=== PATIENT | female | born 1975 | race Caucasian/White ===

== ENCOUNTER → 2016-05-25 | Outpatient (CLI) | payer OTHER ==
[~2016-05-25] MED LIST: ACYCLOVIR 400400 MG PO; ALPRAZOLAM 0.50.5 M1 PO; B-12; BYSTOLIC 5 MG5 M1 PO; BYSTOLIC 5 MG5 MG PO; CELEXA20 MG PO; CLONAZEPAM 1 MG1 M1 PO; CLONIDINE0.1 PO; DEPO-PROVER150 MG/M1 IM; DEPO-PROVERA; DIAZEPAM 5 MG5 M1 OR; DOLOPHINE HCL10 MG PO; IBUPROFEN; IBUPROFEN 800800 M1 PO; KLOR-CON 1010 MEQ PO; LASIX 20 MG TAB20 MG PO; LASIX 40 MG TAB40 M1 PO; LEXAPRO20 MG PO; METHADONE HCL 110 M1 GT; METHOCARBAMOL; METHOCARBAMOL500 M1 PO; ONDANSETRON HCL4 M2 PO; POTASSIUM20 PO; SAVELLA; SAVELLA100 MG PO; SAVELLA50 MG PO; ULTRAM 50MG TAB50 MG PO; VALTREX 500 MG500 MG PO
== END ==
LOC: RAD 04:47
DX: N64.52 Nipple discharge (principal)

== ENCOUNTER 2016-09-11 12:18 | Observation (INO) | payer OTHER ==
[~2016-09-11] VITALS: Ht 170.2 cm; Wt 65.3 kg
--- NOTE | ~2016-09-11 | EKG ---
[place] [address] [facility] [place] [address] ELECTROCARDIOGRAM REPORT Name: CASEERICKA Room #: 417-I [facility] M.R.#: [id number] Admission: 09/11/16 Attend Phys: Stef See MD Discharge: Date of : 71 Report #: [id number] THIS REPORT FOR: //name// [facility] Test Date: 2016-09-12 Test Time: 06:44:57 Pat Name: ERICKA KAYE Department: Room: [facility] Gender: F Derrick Boat Operator: CHELSEY : 1975 Requested By: Stef See Order Number: [id number] MD: Blaze Aldridge Measurements Intervals [place] Rate: 55 P: 80 AR: 153 QRS: 57 QRSD: 82 T: 54 QT: 425 QTc: 407 Interpretive Statements Sinus bradycardia Low voltage, precordial leads Compared to ECG 09/15/2015 16:24:[address] and T-wave abnormality no longer present Electronically Signed On 09-12-2016 18:27:14 CDT by Blaze Aldridge [email or web address] <ELECTRONICALLY SIGNED> By: Blaze Aldridge MD, [facility] 09/12/16 1827 3 Blaze Aldridge MD, [facility] /EPI
[2016-09-11 13:00] VITALS: BP 102/62
[2016-09-11 15:44] VITALS: BP 95/53
[2016-09-11 20:10] VITALS: BP 94/60
[2016-09-11] MEDS ORDERED: B-12 (23:06)
[2016-09-11] MEDS ORDERED: ROBAXIN 750 MG750 M1 PO (23:09)
[2016-09-11 23:45] VITALS: BP 90/59
[2016-09-12 05:05] VITALS: BP 101/66
[2016-09-12 05:56] VITALS: BP 102/69
[2016-09-12 09:28] LABS: ABG SAMPLE TYPE ARTERIAL; BE(vivo) -5.9 mmol/L (-2 to +3); HCO3 18.6 mmol/L (22.0-26.0); LACTATE 3.12 mmol/L (0.5-2.0); O2(CT) 12.8 mL/dL (15.0-23.0); O2Hb 95.6 % (92.0-98.0); PCO2 32.8 mmHg (35.0-45.0); PO2 94.1 mmHg (80.0-100.0); STICK SITE R.BRACHIAL; pH 7.371 (7.360-7.450); sO2 97.1 % (92.0-98.0); tCO2 19.6 mmol/L (24.0-30.0)
[2016-09-12 09:39] VITALS: BP 88/56
[2016-09-12 09:58] LABS: MCH 22.6 pg (26.0-34.0); MCHC 30.9 g/dL (28.0-37.0); MCV 73.1 fL (80.0-100.0); RBC 3.56 mil/uL (4.20-5.00); RDW 18.6 % (10.5-14.5); WBC 3.5 thou/uL (4.0-11.0)
[2016-09-12 14:07] VITALS: BP 88/56
== END 2016-09-12 19:16 | disposition home or self-care (01) ==
LOC: 4E 12:18
PROVIDERS: Family Medicine
DX: M79.1 Myalgia (principal); R10.9 Unspecified abdominal pain; E87.6 Hypokalemia; R11.2 Nausea with vomiting, unspecified; F41.9 Anxiety disorder, unspecified; F32.9 Major depressive disorder, single episode, unspecified; G89.29 Other chronic pain; K85.90 Acute pancreatitis without necrosis or infection, unspecified; M79.7 Fibromyalgia; R51 Headache

== ENCOUNTER → 2016-10-01 | Outpatient (CLI) | payer OTHER ==
[~2016-10-01] MED LIST changes: +ROBAXIN 750 MG750 M1 PO
== END ==
LOC: RAD 16:37
DX: R06.02 Shortness of breath (principal); R06.00 Dyspnea, unspecified

== ENCOUNTER 2016-10-02 17:40 | Inpatient (IN) | payer OTHER ==
[~2016-10-02] VITALS: Ht 170.2 cm; Wt 66.7 kg
--- NOTE | ~2016-10-02 | P ---
[facility] [place] [address] PROCEDURE REPORT Name: CASEERICKA Room #: 441-P [facility] IN M.R.#: [id number] Admission: 10/02/16 Attend Phys: Stef See MD Discharge: 10/09/16 Date of : 71 Report #: [id number] THIS REPORT FOR: //name// CC: Stef See MD DATE OF SERVICE: 10/05/2016 PROCEDURE PERFORMED: Incomplete colonoscopy. HISTORY OF PRESENT ILLNESS: The patient is a 41-year-old female with iron deficiency anemia and abdominal pain. Upper endoscopy was performed by my partner, Dr. Patel yesterday, which showed changes consistent with gastric bypass surgery. No evidence of bleeding. Plan is for colonoscopy. DESCRIPTION OF PROCEDURE: The risks and benefits of the procedure were explained to the patient, those risks including but not limited to bleeding, perforation, the risk of sedation. She understood these risks and gave informed consent. Sedation was given using propofol per anesthesia. Next, a digital rectal exam was initially performed, which was normal. Next, using a standard Fujinon colonoscope, the scope was placed in the patient's anus and advanced under direct vision into the sigmoid colon, at which point it was obvious the overall prep was very poor. I did try several washings and aspirations, however, there was a large amount of stool. Therefore, at this point, the scope was then withdrawn and the procedure terminated. The patient tolerated the procedure well. IMPRESSION: Poor prep. RECOMMENDATIONS: Would recommend re-prepping in the future for colonoscopy. Thank you for allowing me to participate in her care. <ELECTRONICALLY SIGNED> By: Power Combs MD 10/10/16 1226 1605 2216 Power Combs MD /nt
--- NOTE | ~2016-10-02 | S ---
[facility] [place] [address] [place] [address] SURGICAL PATH RPT PROCEDURE Name: CASE,ERICKA ROSE Room #: 441-P DIS IN M.R.#: [id number] Admission: 10/02/16 Date of : 71 Discharge: 10/09/16 Report #: [id number] Path Case #: [id number] PATHOLOGY REPORT COLLECTION DATE: 10/08/2016 RECEIVED DATE: 10/08/2016 SUBMITTING PHYS: Dr. Stevan Garcia OTHER PHYS: Dr. Stef See SPECIMEN(S) RECEIVED: A.Random colon bx * * * * * * * * * * * * FINAL DIAGNOSIS: Large intestine, random colon, endoscopic biopsy: - Mild focal active cryptitis (please see comment). - Negative for dysplasia or malignancy. (IUV:tricia; 10/09/2016) COMMENT: Examination shows a rare focus of cryptitis along with focal surface epithelial inflammation. The lamina propria cellularity is mixed, comprised of lymphocytes; rare plasma cells, as well as eosinophils, and appears to be mildly increased. There are no crypt architectural abnormalities, granulomata, viral inclusions, or parasitic organisms. Findings to suggest microscopic colitis are not present. Overall, findings may be suggestive of a resolving episode of colitis, focal active colitis, acute diverticulitis, possible early inflammatory bowel disease, reaction to bowel preparation, or medication-induced colitis. Please correlate clinically. (IUV:tricia; 10/09/2016) PATHOLOGIST: Solange Young M.D. REPORT ELECTRONICALLY SIGNED BY: Solange Young M.D. DATE/TIME: 10/09/2016 15:59 * * * * * * * * * * * * GROSS PATHOLOGY: Received in formalin labeled "Ericka Malave, random colon BX," are three segments of cunningham soft tissue measuring 1.1 x 0.3 x 0.2 cm in aggregate dimensions and ranging from 0.3 to 0.4 cm in maximum dimension. The specimen is submitted entirely in cassette A1. (TSD; 10/08/2016) CLINICAL HISTORY: [address] [address] SURGICAL PATH RPT PROCEDURE Name: CASE,ERICKA ROSE Room #: 441-P DIS IN M.R.#: [id number] Admission: 10/02/16 Date of : 71 Discharge: 10/09/16 Report #: [id number] Path Case #: [id number] Abdominal pain INITIAL CPT CODE(S): A; 86462 Professional services performed by [facility] at [address], [place] [address] Technical services performed by [facility] at [address] [place] [address], [place] [address]. [facility] [address] [place] [address] PHONE: [phone] DIRECTOR: Riki Dukes M.D. * * * END OF REPORT * * *
--- NOTE | ~2016-10-02 | 2DMMODE ---
[facility] [address] [place] [address] 2 D/M-MODE ECHOCARDIOGRAM Name: CASE,ERICKA ROSE Room #: 441-P ADM IN M.R.#: [id number] Admission: 10/02/16 Attend Phys: Stef See, Discharge: Date of : 71 Date of Service: 10/04/16 1015 Report #: [id number] THIS REPORT FOR: //name// APPROVED REPORT Study performed: 10/04/2016 08:31:00 EXAM: Comprehensive 2D, Doppler, and color-flow Echocardiogram Patient Location: Echo lab Room #: [facility] Status: routine BSA: 1.77 HR: 58 bpm BP: 82/47 mmHg Other Information Study Quality: Good Indications Dyspnea Chest Pain 2D Dimensions RVDd: 27.49 mm IVC: 26.00 mm Volumes Left Atrial Volume (Systole) Single Plane 4CH: 31.02 mL Single Plane 2CH: 65.72 mL LA ESV Index: 28.00 mL/m2 Aortic Valve AoV Peak Ezequiel.: 1.08 m/s AO Peak Gr.: 4.64 mmHg LVOT Max P.43 mmHg LVOT Max V: 0.78 m/s Mitral Valve E/A Ratio: 1.2 MV Decel. Time: 493.78 ms MV E Max Ezequiel.: 0.48 m/s MV A Ezequiel.: 0.40 m/s MV PHT: 143.20 ms IVRT: 96.89 ms Pulmonary Valve [facility] [address] [place] [address] 2 D/M-MODE ECHOCARDIOGRAM Name: CASE,ERICKA ROES Room #: 441-P [facility] IN M.R.#: [id number] Admission: 10/02/16 Attend Phys: Stef See, Discharge: Date of : 71 Date of Service: 10/04/16 1015 Report #: [id number] PV Peak Ezequiel.: 0.71 m/s PV Peak Gr.: 1.99 mmHg Pulmonary Vein P Vein S: 0.49 m/s P Vein A: 0.29 m/s P Vein D: 0.36 m/s P Vein A Dur.: 115.3 msec P Vein S/D Ratio: 1.36 Tricuspid Valve TR Peak Ezequiel.: 2.23 m/s RAP Estimate: 10.00 mmHg TR Peak Gr.: 19.90 mmHg PA Pressure: 30.00 mmHg Left Ventricle The left ventricle is normal size. There is normal LV segmental wall motion. There is normal left ventricular wall thickness. The left ventricular systolic function is normal. The left ventricular ejection fraction is within the normal range. LVEF is 55-60%. The left ventricular diastolic function is normal. Right Ventricle The right ventricle is normal size. The right ventricular systolic function is normal. Atria The left atrium size is normal. The right atrium size is normal. Aortic Valve The aortic valve is normal in structure. No aortic regurgitation is present. There is no aortic valvular stenosis. Mitral Valve The mitral valve is normal in structure. Trace mitral regurgitation. No evidence of mitral valve stenosis. Tricuspid Valve The tricuspid valve is normal in structure. There is trace tricuspid regurgitation. The right atrial pressure is estimated at 10 mmHg. There is no pulmonary hypertension. Pulmonic Valve The pulmonary valve is normal in structure. There is no pulmonic valvular regurgitation. Great Vessels The aortic root is normal in size. IVC is dilated and collapses [facility] [address] [place] [address] 2 D/M-MODE ECHOCARDIOGRAM Name: CASE,ERICKA ROSE Room #: 441-P ADM IN M.R.#: [id number] Admission: 10/02/16 Attend Phys: Stef See, Discharge: Date of : 71 Date of Service: 10/04/16 1015 Report #: [id number] >50% with inspiration. Pericardium There is no pericardial effusion. <Conclusion> The left ventricle is normal size. LVEF is 55-60%. The aortic valve is normal in structure. The mitral valve is normal in structure. Trace mitral regurgitation. The tricuspid valve is normal in structure. There is trace tricuspid regurgitation. The right atrial pressure is estimated at 10 mmHg. There is no pulmonary hypertension. The pulmonary valve is normal in structure. <ELECTRONICALLY SIGNED> By: Anastacio Hodges MD 10/04/16 1015 1015 1015 Anastacio Hodges MD /INF
--- NOTE | ~2016-10-02 | HC ---
[facility] [place] [address] [place] [address] CONSULTATION Name: CASEERICKA Room #: 441-P ADM IN M.R.#: [id number] Admission: 10/02/16 Attend Phys: Stef See MD Discharge: Date of : 71 Report #: [id number] THIS REPORT FOR: //name// CC: Dk See MD DATE OF SERVICE: 10/04/2016 REASON FOR CONSULTATION: Anemia. HISTORY OF PRESENT ILLNESS: The patient is a 41-year-old female from [place], [place] who currently lives in [place]. She has a history of a Misbah-en-Y gastric bypass at [facility] in 2000. She was admitted with a history of fatigue and anemia and possible GI bleeding. She also had some nausea and vomiting and shortness of air. She also describes nipple discharge. The patient, with regards to anemia, says that she has been told she has been anemic for a while. She has not had a transfusion, although it sounds like it has been discussed. She had been on oral iron in the distant past. She did recently receive a dose of IV iron begun on the with plans for iron sucrose 200 mg daily for 5 ____. She describes what sounds like to me there is some very dark stool consistent with what she thinks is bleeding, maybe a little bit of red tinge, she has not thrown up any blood. I do not think she has seen any blood in her urine. She also describes being short of air. She describes having a pulmonary emboli at [facility] last January, but it is unclear whether she actually took anticoagulation or not. She admits to be quite fuzzy this morning. She also thinks that she has had some nipple discharge for about 5 months. She has had an ultrasound and mammogram recently and was scheduled to Dr. Kingsley Bales, which has not occurred yet. Seems like she eats a fairly regular diet. PAST MEDICAL HISTORY: Notable for the Misbah-en-Y gastric bypass at [facility] in 2000. Lap cholecystectomy in 2003. She has also had some upper and lower body lifts reportedly in [place] in 2004. Also may be Lyme disease or chronic pain syndrome, also reported bipolar, anxiety disorder or post traumatic stress syndrome, possibly related to a situation in 2013, bilateral breast implants. Note there was no leakage seen on recent mammogram and sonogram, also pancreatitis in 2014. SOCIAL HISTORY: She had worked in [employer]. She is on partial disability related to Lyme disease. She has not worked for about 2 years. FAMILY HISTORY: Both mother and father were alcoholics and have dementia, has a [facility] [address] [place] [address] CONSULTATION Name: CASE,ERICKA ROSE Room #: 441-P ADM IN M.R.#: [id number] Admission: 10/02/16 Attend Phys: Stef See MD Discharge: Date of : 71 Report #: [id number] sister with breast cancer, has a son who is healthy. She was at her uncle's house, if I understand correctly, in [place], nonsmoker, supposedly no recreational drug usage. Alcohol: None. MEDICATIONS: At this time in the hospital currently include pantoprazole 40 daily, diphenhydramine q.6 p.r.n., IV fluids, potassium chloride 10 mEq daily, citalopram 30 mg daily, methadone 10 mg q.i.d., acyclovir 400 q.i.d., ibuprofen ____ t.i.d., clonazepam 0.5 mg t.i.d., methocarbamol 750 mg q.i.d. p.r.n., IV iron sucrose. PHYSICAL EXAMINATION: GENERAL: The patient appears her stated age, slightly groggy. VITAL SIGNS: Height is 5 feet 7 inches, which is 170 cm, weight 147 pounds 4 ounces, which is 66.8 kilograms. Blood pressure is 82/47, this is not too atypical for her, O2 sat 94%, respirations 18, pulse 63, temperature afebrile at 98.3. MOOD: The patient is alert, slightly sleepy, but is able to answer questions, though she sort of admits to being foggy and had to correct herself several times on answering questions. NEUROLOGIC: Face appears to be symmetrical. She is moving her extremities. LUNGS: Clear, symmetric respirations without rales, rhonchi or wheezes. HEART: Appears to be regular rate. LYMPHATICS: No enlarged lymph nodes in the supraclavicular or cervical regions. BREASTS: Have implants present, no obvious masses, does have some fibroglandular changes in both breast tails, no nipple discharge or crusting noted. ABDOMEN: Scaphoid, no masses, mild discomfort, but I would not call it tender. EXTREMITIES: Without clubbing or cyanosis. No obvious unusual rash, ecchymosis noted. LABORATORY DATA: Here shows a BUN of 6, creatinine 0.9. Liver functions in earlier September were normal. Total bili recently 0.2, ALT 17, albumin 3.7, LDH 197, iron was 17, TIBC 435%, saturation 4. Coags normal with an INR of 1.1, APTT of 22.5. White blood count 5.2, hemoglobin 8.1, MCV of 72. Note that back in 09/2015 it was 86 and back in 06/2009 it was 91. Platelet count is 122. Note that in the past, it is usually in the mid 200 range. Differential nonacute with an ANC of 3.2 thousand, B12 recently 328, TSH a year ago was 0.091. Note that recent HIV screening tests were negative. Entamoeba histolytica was negative. UA showed 0-2 rare rbc's. IMAGING: Done recently at this hospital includes ultrasound of the abdomen, which is no acute intraabdominal process, gallbladder has been removed, common bile duct normal size and spleen 11.1 cm, kidneys normal size, liver without evidence of cirrhosis or intrahepatic biliary ductal dilatation measuring 13.[address] abdomen and pelvis done about a year ago showed no acute changes, did have mild bile duct dilatation at that time. [address] [address] CONSULTATION Name: ERICKA KAYE Room #: 441-P ADM IN M.R.#: [id number] Admission: 10/02/16 Attend Phys: Stef See MD Discharge: Date of : 71 Report #: [id number] ASSESSMENT AND PLAN: 1. Anemia, iron deficiency related, agree with iron replacement. The patient probably cannot absorb iron very well after Misbah-en-Y, though it is mentioned that her MCV has decreased just in the last several years, even though her Misbah-en-Y was 16 years ago. Agree with GI looking for GI blood loss source, especially with use of Motrin several times per week, would consider making it non-available here. 2. Complaint of nipple discharge. No masses. Recent mammogram and ultrasound normal, reportedly prolactin normal. No reported history of marijuana or Tagamet that might increase this or hormonal changes that might cause nipple discharge, exam is benign. 3. B12 replacement. Continue 4. Reported history of pulmonary embolism last January at [facility] without anticoagulation use, records pending, sounds like she had seen hematology over there, could consider prophylactic dose here once we know that she is not bleeding or prophylactic dose of Lovenox once we know she is not bleeding from her GI sources. 5. Post traumatic stress syndrome and mood disorder. Continue citalopram. 6. Chronic pain, methadone 10 q.i.d. We will follow along. 7. Past history of chronic Lyme or fibromyalgia. Defer to others. 8. History of pancreatitis in 2014. Defer to others. <ELECTRONICALLY SIGNED> By: Derian Rouse MD 10/05/16 0658 0846 1013 Derian Rouse MD /nt
--- NOTE | ~2016-10-02 | P ---
[facility] [place] [address] [place] [address] PROCEDURE REPORT Name: CASEERICKA Room #: 441-P ADM IN M.R.#: [id number] Admission: 10/02/16 Attend Phys: Stef See MD Discharge: Date of : 71 Report #: [id number] THIS REPORT FOR: //name// CC: Stef See MD DATE OF SERVICE: 10/04/2016 PROCEDURE: Diagnostic EGD. INDICATION FOR PROCEDURE: Evaluate for possible sources of iron deficiency anemia. Informed consent for this procedure was obtained prior to the administration of any medication. The risks of the procedure which include bleeding, perforation, infection, complications of sedation and the possibility I could miss something have been explained to the patient and she has indicated her consent by signing. Propofol was slowly titrated before and during this procedure for patient comfort by the anesthesia service. The GetFeedbackn upper videoscope was introduced through the upper esophageal sphincter and advanced under direct visualization to deep within the jejunum. Findings are noted on withdrawal of the scope. The visualized portions of the jejunum and the gastrojejunostomy appeared intact. There is no source of GI blood loss or active bleeding in this portion of the jejunum. There is a gastric pouch that remains. The patient has had gastric bypass surgery and portion of her stomach had been removed. The staple line appears intact. There is no evidence of any ulceration at the gastrojejunostomy. The gastric lining appears intact. There is some retained food in the stomach consistent with gastroparesis. The scope was withdrawn into the esophagus. The Z-line is appropriately located at the top the gastric folds and appears normal. There is some erythema associated with the Z line suggesting some reflux of some sort, but the rest of the esophageal mucosa appears normal, no source of bleeding in the upper GI tract. The scope was withdrawn. The patient went to the recovery area in stable condition. She tolerated the procedure well. IMPRESSION: 1. The patient with gastric bypass surgery and significant portion of her stomach removed. The esophagus demonstrated some mild erythema at the Z-line. 2. The gastrojejunostomy appears to be intact without any ulcerations. 3. The visualized jejunum appears normal. RECOMMENDATIONS: To proceed with colonoscopy tomorrow. [facility] [address] [place] [address] PROCEDURE REPORT Name: CASE,ERICKA ROSE Room #: 441-P [facility] IN M.R.#: [id number] Admission: 10/02/16 Attend Phys: Stef See MD Discharge: Date of : 71 Report #: [id number] Thank you very much once again for allowing me to participate in her care, Dr. See. <ELECTRONICALLY SIGNED> By: Shannan Patel DO 10/04/16 1527 1027 8288 Shannan Patel, DO /nt
[2016-10-02 18:30] VITALS: BP 96/53
[2016-10-02 19:12] LABS: ALBUMIN 3.7 g/dL (3.4-5.0); ALKALINE PHOSPHATASE 111 U/L (46-116); ANION GAP 11 mmol/L (7-16); BUN 6 mg/dL (7-18); CALCIUM 8.5 mg/dL (8.5-10.1); CHLORIDE 104 mmol/L (98-107); CO2 25 mmol/L (21-32); CREATININE 0.9 mg/dL (0.6-1.0); GLUCOSE 101 mg/dL (74-106); POTASSIUM 3.5 mmol/L (3.5-5.1); SGOT 17 U/L (15-37); SGPT 17 U/L (30-65); SODIUM 140 mmol/L (136-145); TOTAL BILIRUBIN 0.2 mg/dL (<0.1-1.0); TOTAL PROTEIN 6.4 g/dL (6.4-8.2)
[2016-10-02 19:28] LABS: HIV-1 P24 AG Nonreactive (Nonreactive)
[2016-10-03 04:31] VITALS: BP 84/48
[2016-10-03 07:16] VITALS: BP 81/48
[2016-10-03 16:44] LABS: % SATURATION 4 % (20-39); IRON 17 ug/dL (50-170); TIBC 435 ug/dL (250-450); UIBC 418 ug/dL
[2016-10-03 17:00] VITALS: BP 84/54
[2016-10-03 19:41] VITALS: BP 82/52
[2016-10-04 05:34] VITALS: BP 78/44
[2016-10-04 05:51] LABS: ABSOLUTE NEUTROPHILS 3.2 thou/uL (1.4-8.2); BASOPHILS 1.3 % (0.0-2.0); EOSINOPHILS 2.7 % (0.0-3.0); HEMATOCRIT 26.4 % (37.0-47.0); HEMOGLOBIN 8.1 gm/dL (12.0-15.0); LYMPHOCYTES 31.1 % (24.0-44.0); MCH 22.1 pg (26.0-34.0); MCHC 30.7 g/dL (28.0-37.0); MONOCYTES 4.4 % (1.0-8.0); PLATELET COUNT 122 thou/uL (150-400); POLYS 60.5 % (36.0-66.0); RBC 3.66 mil/uL (4.20-5.00); WBC 5.2 thou/uL (4.0-11.0)
[2016-10-04 05:58] LABS: MANUAL DIFF NO
[2016-10-04 06:01] LABS: APTT 22.5 Seconds (24.5-32.8); INR 1.1; PROTIME 11.1 Seconds (9.3-11.4)
[2016-10-04 06:30] LABS: URINE BILIRUBIN NEGATIVE (Negative); URINE BLOOD NEGATIVE (Negative); URINE COLOR YELLOW; URINE GLUCOSE-RANDOM* NEGATIVE (Negative); URINE KETONES NEGATIVE (Negative); URINE LEUKOCYTES-REFLEX 1+ (Negative); URINE PROTEIN (DIPSTICK) NEGATIVE (Negative); URINE UROBILINOGEN 0.2 E.U./dl (0.2-1.0)
[2016-10-04 07:00] LABS: CASTS None Seen /LPF (None Seen); SQUAMOUS 0-3 Few /LPF (0-3)
[2016-10-04 07:01] LABS: CRYSTALS None Seen /LPF (None Seen); URINE RBC 0-2 Rare /HPF (0-2); URINE WBC-REFLEX 0-5 Rare /HPF (0-5)
[2016-10-04 08:31] VITALS: BP 82/47
[2016-10-04 16:31] VITALS: BP 89/54
[2016-10-04 19:45] VITALS: BP 81/46
[2016-10-05 04:40] VITALS: BP 89/55
[2016-10-05 08:00] VITALS: BP 93/56
[2016-10-05 16:54] VITALS: BP 95/58
[2016-10-05 19:40] VITALS: BP 79/44
[2016-10-06 05:25] VITALS: BP 94/61
[2016-10-06 08:45] VITALS: BP 86/52
[2016-10-06 16:35] VITALS: BP 81/51
[2016-10-06 20:28] VITALS: BP 87/50
[2016-10-07 04:27] VITALS: BP 77/44
[2016-10-07 06:22] VITALS: BP 100/60
[2016-10-07 08:35] VITALS: BP 90/52
[2016-10-07 16:33] VITALS: BP 103/63
[2016-10-07 20:00] VITALS: BP 97/59
[2016-10-08 03:54] VITALS: BP 115/77
[2016-10-08 13:45] LABS: HEMATOCRIT 27.2 % (37.0-47.0); HEMOGLOBIN 8.5 gm/dL (12.0-15.0); MCH 22.9 pg (26.0-34.0); MCHC 31.3 g/dL (28.0-37.0); RBC 3.72 mil/uL (4.20-5.00); RDW 19.7 % (10.5-14.5); WBC 3.6 thou/uL (4.0-11.0)
[2016-10-08 16:00] VITALS: BP 95/64
[2016-10-08 19:33] VITALS: BP 92/59
[2016-10-09 04:45] VITALS: BP 99/61
[2016-10-09 08:42] VITALS: BP 105/57
[2016-10-09] MEDS ORDERED: FLAGYL500 MG PO (09:00)
[2016-10-09] MEDS ORDERED: PANTOPRAZOLE SO40 M1 PO (09:00)
[2016-10-09 13:13] VITALS: BP 105/57
== END 2016-10-09 15:11 | disposition home or self-care (01) | DRG 379 ==
LOC: 4S 17:40
PROVIDERS: Family Medicine; Internal Medicine Gastroenterology; Internal Medicine Hematology & Oncology
PROC: 0DJ08ZZ Inspection of Upper Intestinal Tract, Via Natural or Artificial Opening Endoscopic (ICD-10-PCS; principal; 2016-10-04)
PROC: 0DJD8ZZ Inspection of Lower Intestinal Tract, Via Natural or Artificial Opening Endoscopic (ICD-10-PCS; 2016-10-05)
PROC: 0DBE8ZX Excision of Large Intestine, Via Natural or Artificial Opening Endoscopic, Diagnostic (ICD-10-PCS; 2016-10-08)
DX: K92.1 Melena (principal); K29.70 Gastritis, unspecified, without bleeding; K59.00 Constipation, unspecified; K64.8 Other hemorrhoids; K29.80 Duodenitis without bleeding; K52.9 Noninfective gastroenteritis and colitis, unspecified; D50.9 Iron deficiency anemia, unspecified; F31.9 Bipolar disorder, unspecified; F41.9 Anxiety disorder, unspecified; F43.10 Post-traumatic stress disorder, unspecified; K62.89 Other specified diseases of anus and rectum; L29.9 Pruritus, unspecified; M79.1 Myalgia; R23.3 Spontaneous ecchymoses; I95.9 Hypotension, unspecified; G89.4 Chronic pain syndrome; Z98.84 Bariatric surgery status; Z86.711 Personal history of pulmonary embolism; Z90.49 Acquired absence of other specified parts of digestive tract; Z82.49 Family history of ischemic heart disease and other diseases of the circulatory system
CPT/HCPCS: 10100; 62110; 62900; 70005

== ENCOUNTER 2016-10-17 09:46 | Emergency (ER) | payer OTHER ==
[~2016-10-17] VITALS: Ht 170.2 cm; Wt 64.4 kg
--- NOTE | ~2016-10-17 | EKG ---
[place] [address] [place] [address] ELECTROCARDIOGRAM REPORT Name: CASEERICKA [id number] Admission: 10/17/16 Attend Phys: Discharge: 10/17/16 Date of : 71 Report #: [id number] THIS REPORT FOR: //name// [facility] ED Test Date: 2016-10-17 Test Time: 10:38:42 Pat Name: ERICKA KAYE Department: Room: Gender: F Construction Person: Mary Anne SEARS : 1975 Requested By: Jason Smith Order Number: [id number] MD: Blaze Aldridge Measurements Intervals [place] Rate: 51 P: 71 AL: 148 QRS: 71 QRSD: 82 T: 60 QT: 456 QTc: 420 Interpretive Statements Sinus bradycardia Otherwise no significant abnormality Compared to ECG 09/12/2016 06:44:57 No significant change was found Electronically Signed On 10-18-2016 12:39:00 CDT by Blaze Aldridge [email or web address] <ELECTRONICALLY SIGNED> By: Blaze Aldridge MD, [facility] 10/18/16 1239 1038 [facility] Blaze Aldridge MD, FACC /EPI
[~2016-10-17 09:46] MED LIST changes: +FLAGYL500 MG PO; +PANTOPRAZOLE SO40 M1 PO
[2016-10-17] MEDS ORDERED: METHADONE HCL 110 M1 PO (09:51)
[2016-10-17 10:32] LABS: URINE BILIRUBIN NEGATIVE (Negative); URINE BLOOD NEGATIVE (Negative); URINE COLOR YELLOW; URINE GLUCOSE-RANDOM* NEGATIVE (Negative); URINE KETONES TRACE (Negative); URINE PROTEIN (DIPSTICK) NEGATIVE (Negative); URINE SPECIFIC GRAVITY 1.015 (1.003-1.035)
[2016-10-17 10:33] LABS: URINE LEUKOCYTES-REFLEX TRACE (Negative)
[2016-10-17 10:40] LABS: AMP/METHAMP Negative (Negative); BARBITURATES Negative (Negative); BENZODIAZEPINES POSITIVE (Negative); COCAINE Negative (Negative); METHADONE POSITIVE (Negative); OPIATES Negative (Negative); PCP Negative (Negative); THC Negative (Negative)
[2016-10-17 10:47] LABS: HEMATOCRIT 33.1 % (37.0-47.0); HEMOGLOBIN 10.6 gm/dL (12.0-15.0); MCH 24.4 pg (26.0-34.0); MCHC 31.9 g/dL (28.0-37.0); MCV 76.5 fL (80.0-100.0); PLATELET COUNT 223 thou/uL (150-400); RBC 4.32 mil/uL (4.20-5.00); RDW 26.5 % (10.5-14.5); WBC 4.7 thou/uL (4.0-11.0)
[2016-10-17 10:48] LABS: MANUAL DIFF YES
[2016-10-17 10:55] LABS: ANION GAP 7 mmol/L (7-16); BUN 11 mg/dL (7-18); CALCIUM 8.7 mg/dL (8.5-10.1); CHLORIDE 105 mmol/L (98-107); CO2 26 mmol/L (21-32); CREATININE 1.1 mg/dL (0.6-1.0); GLUCOSE 77 mg/dL (74-106); POTASSIUM 4.1 mmol/L (3.5-5.1); SODIUM 138 mmol/L (136-145)
[2016-10-17 11:04] LABS: TROPONIN-I < 0.04 ng/mL (<0.04-0.07)
[2016-10-17 11:42] LABS: ABSOLUTE NEUTROPHILS 1.7 thou/uL (1.4-8.2); ANISOCYTOSIS 2+; MICROCYTES 2+; PLATELET ESTIMATE NORMAL; POLYCHROMASIA SLIGHT; TOTAL CELL COUNT 100
[2016-10-17 12:31] VITALS: BP 93/57
== END 2016-10-17 12:45 | disposition home or self-care (01) ==
LOC: ER 09:46
PROVIDERS: Emergency Medicine
DX: R53.83 Other fatigue (principal); R07.89 Other chest pain; M79.1 Myalgia; G89.29 Other chronic pain; F31.9 Bipolar disorder, unspecified; F41.9 Anxiety disorder, unspecified; F43.10 Post-traumatic stress disorder, unspecified; Z90.49 Acquired absence of other specified parts of digestive tract

== ENCOUNTER 2017-01-28 15:45 | Emergency (ER) | payer OTHER ==
[~2017-01-28] VITALS: Ht 170.2 cm; Wt 59.0 kg
--- NOTE | ~2017-01-28 | EKG ---
[place] [address] [address] [facility] [place] [address] ELECTROCARDIOGRAM REPORT Name: CASEERICKA [facility] [id number] Admission: 01/28/17 Attend Phys: Discharge: 01/28/17 Date of : 71 Report #: [id number] THIS REPORT FOR: //name// [facility] ED Test Date: 2017-01-28 Test Time: 15:55:13 Pat Name: ERICKA KAYE Department: Room: Gender: Field Examiner: RUBINA : 1975 Requested By: Saad Zamorano Order Number: [id number] MD: Blaze Aldridge Measurements Intervals [place] Rate: 82 P: 72 [place]: 135 QRS: 56 QRSD: 80 T: 32 QT: 372 QTc: 435 Interpretive Statements Sinus rhythm No significant abnormality Compared to ECG 10/17/2016 10:38:42 Sinus bradycardia no longer present Electronically Signed On 01-29-2017 8:42:08 CIVIL ATTORNEY by Blaze Aldridge [email or web address] <ELECTRONICALLY SIGNED> By: Blaze Aldridge MD, [facility] 01/29/17 0842 1555 1555 Blaze Aldridge MD, FACC /EPI
[~2017-01-28 15:45] MED LIST changes: +AUGMENTIN 875-1 EACH PO; +METHADONE HCL 110 M1 PO
[2017-01-28 16:40] LABS: ABSOLUTE NEUTROPHILS 5.4 thou/uL (1.4-8.2); BASOPHILS 0.5 % (0.0-2.0); EOSINOPHILS 0.7 % (0.0-3.0); HEMATOCRIT 38.8 % (37.0-47.0); MCH 30.2 pg (26.0-34.0); MCHC 33.4 g/dL (28.0-37.0); MCV 90.5 fL (80.0-100.0); MONOCYTES 4.8 % (1.0-8.0); PLATELET COUNT 114 thou/uL (150-400); RBC 4.29 mil/uL (4.20-5.00); RDW 14.7 % (10.5-14.5); WBC 6.9 thou/uL (4.0-11.0)
[2017-01-28 16:41] LABS: MANUAL DIFF NO
[2017-01-28 16:46] LABS: ANION GAP 5 mmol/L (7-16); BUN 7 mg/dL (7-18); CALCIUM 8.7 mg/dL (8.5-10.1); CHLORIDE 102 mmol/L (98-107); CO2 29 mmol/L (21-32); CREATININE 0.7 mg/dL (0.6-1.0); GLUCOSE 89 mg/dL (74-106); POTASSIUM 4.2 mmol/L (3.5-5.1); SODIUM 136 mmol/L (136-145)
[2017-01-28 16:55] LABS: ALBUMIN 3.5 g/dL (3.4-5.0); ALKALINE PHOSPHATASE 219 U/L (46-116); MAGNESIUM 2.4 mg/dL (1.8-2.4); SGOT 162 U/L (15-37); SGPT 502 U/L (30-65); TOTAL BILIRUBIN 0.4 mg/dL (<0.1-1.0); TOTAL PROTEIN 6.5 g/dL (6.4-8.2); TROPONIN-I < 0.04 ng/mL (<0.06)
[2017-01-28] MEDS ORDERED: MIRALAX17 GM PO (17:36)
[2017-01-28 18:16] LABS: URINE BILIRUBIN NEGATIVE (Negative); URINE BLOOD NEGATIVE (Negative); URINE COLOR YELLOW; URINE GLUCOSE-RANDOM* NEGATIVE (Negative); URINE KETONES NEGATIVE (Negative); URINE LEUKOCYTES-REFLEX NEGATIVE (Negative); URINE PROTEIN (DIPSTICK) NEGATIVE (Negative); URINE SPECIFIC GRAVITY 1.015 (1.005-1.035); URINE UROBILINOGEN 0.2 E.U./dl (0.2-1.0)
[2017-01-28 18:31] LABS: AMP/METHAMP Negative (Negative); BARBITURATES Negative (Negative); BENZODIAZEPINES Negative (Negative); COCAINE Negative (Negative); METHADONE POSITIVE (Negative); OPIATES Negative (Negative); PCP Negative (Negative)
[2017-01-28] MEDS ORDERED: PRILOSEC 20 MG20 MG PO (18:31)
[2017-01-28] MEDS ORDERED: ZOFRAN ODT4 MG DISSOLVE (18:31)
[2017-01-28] MEDS ORDERED: NAPROXEN375 MG PO (18:31)
[2017-01-28 19:05] VITALS: BP 84/52
[2017-01-29 07:10] LABS: HEPATITIS C VIRUS AB <0.1 (0.0-0.9)
== END 2017-01-28 19:31 | disposition home or self-care (01) ==
LOC: ER 15:45
PROVIDERS: Emergency Medicine
DX: R07.89 Other chest pain (principal); F31.9 Bipolar disorder, unspecified; G89.4 Chronic pain syndrome; M79.7 Fibromyalgia; Z88.4 Allergy status to anesthetic agent

== ENCOUNTER 2017-01-29 11:48 | Inpatient (IN) | payer OTHER ==
[~2017-01-29] VITALS: Ht 152.4 cm; Wt 66.2 kg
[~2017-01-29 11:48] MED LIST changes: +MIRALAX17 GM PO; +NAPROXEN375 MG PO; +PRILOSEC 20 MG20 MG PO; +ZOFRAN ODT4 MG DISSOLVE
[2017-01-29 13:32] LABS: HEMATOCRIT 36.7 % (37.0-47.0); MCH 30.2 pg (26.0-34.0); MCHC 32.7 g/dL (28.0-37.0); MCV 92.5 fL (80.0-100.0); RBC 3.97 mil/uL (4.20-5.00); WBC 3.8 thou/uL (4.0-11.0)
[2017-01-29 13:47] LABS: ALBUMIN 3.3 g/dL (3.4-5.0); CALCIUM 8.7 mg/dL (8.5-10.1); CREATININE 0.7 mg/dL (0.6-1.0); TOTAL BILIRUBIN 0.2 mg/dL (<0.1-1.0); TOTAL PROTEIN 6.2 g/dL (6.4-8.2)
[2017-01-29 14:00] VITALS: BP 83/54
[2017-01-29 16:30] VITALS: BP 88/57
[2017-01-29 19:53] VITALS: BP 104/73
[2017-01-30 03:47] VITALS: BP 107/73
[2017-01-30 08:00] VITALS: BP 82/52
[2017-01-30 16:00] VITALS: BP 86/49
[2017-01-30 20:00] VITALS: BP 80/45
[2017-01-31 05:47] VITALS: BP 85/51
[2017-01-31 06:34] LABS: ALBUMIN 2.3 g/dL (3.4-5.0); CALCIUM 8.4 mg/dL (8.5-10.1); CREATININE 0.6 mg/dL (0.6-1.0); POTASSIUM 3.9 mmol/L (3.5-5.1); TOTAL BILIRUBIN 0.2 mg/dL (<0.1-1.0); TOTAL PROTEIN 4.9 g/dL (6.4-8.2)
[2017-01-31 09:43] VITALS: BP 91/49
[2017-01-31 16:01] VITALS: BP 91/56
[2017-01-31 20:14] VITALS: BP 89/50
[2017-02-01 00:31] VITALS: BP 82/47
[2017-02-01 05:13] VITALS: BP 81/45
[2017-02-01 06:30] LABS: ALBUMIN 2.6 g/dL (3.4-5.0); CALCIUM 8.5 mg/dL (8.5-10.1); CREATININE 0.7 mg/dL (0.6-1.0); POTASSIUM 4.2 mmol/L (3.5-5.1); TOTAL BILIRUBIN 0.2 mg/dL (<0.1-1.0); TOTAL PROTEIN 5.3 g/dL (6.4-8.2)
[2017-02-01 07:12] VITALS: BP 79/49
[2017-02-01] MEDS ORDERED: RISPERDAL 1 MG T1 MG PO (07:54)
[2017-02-01] MEDS ORDERED: METHADONE HCL 110 MG PO (07:54)
[2017-02-01 08:34] VITALS: BP 81/45
== END 2017-02-01 12:48 | disposition home or self-care (01) | DRG 885 ==
LOC: 4S 11:48
PROVIDERS: Family Medicine; Internal Medicine Gastroenterology
DX: F39 Unspecified mood [affective] disorder (principal); R19.7 Diarrhea, unspecified; G89.4 Chronic pain syndrome; F31.9 Bipolar disorder, unspecified; F41.9 Anxiety disorder, unspecified; R74.0 Nonspecific elevation of levels of transaminase and lactic acid dehydrogenase [LDH]; F29 Unspecified psychosis not due to a substance or known physiological condition; F43.10 Post-traumatic stress disorder, unspecified; K21.9 Gastro-esophageal reflux disease without esophagitis; Z59.0 Homelessness; Z88.8 Allergy status to other drugs, medicaments and biological substances; Z90.49 Acquired absence of other specified parts of digestive tract; Z98.82 Breast implant status; Z82.49 Family history of ischemic heart disease and other diseases of the circulatory system; Z79.899 Other long term (current) drug therapy
CPT/HCPCS: 10102

== ENCOUNTER 2017-02-06 14:29 | Emergency (ER) | payer OTHER ==
[~2017-02-06] VITALS: Ht 170.2 cm; Wt 59.0 kg
[~2017-02-06 14:29] MED LIST changes: +METHADONE HCL 110 MG PO; +RISPERDAL 1 MG T1 MG PO
[2017-02-06] MEDS ORDERED: METHADONE HCL 110 M1 PO (15:04)
[2017-02-06] MEDS ORDERED: LASIX 40 MG TAB40 M2 PO (15:06)
[2017-02-06] MEDS ORDERED: POTASSIUM20 PO (15:07)
[2017-02-06 15:26] LABS: URINE BILIRUBIN NEGATIVE (Negative); URINE BLOOD NEGATIVE (Negative); URINE COLOR YELLOW; URINE GLUCOSE-RANDOM* NEGATIVE (Negative); URINE KETONES NEGATIVE (Negative); URINE LEUKOCYTES-REFLEX NEGATIVE (Negative); URINE PROTEIN (DIPSTICK) NEGATIVE (Negative); URINE UROBILINOGEN 0.2 E.U./dl (0.2-1.0)
[2017-02-06 15:29] LABS: ABSOLUTE NEUTROPHILS 2.3 thou/uL (1.4-8.2); BASOPHILS 0.9 % (0.0-2.0); EOSINOPHILS 2.6 % (0.0-3.0); HEMATOCRIT 37.3 % (37.0-47.0); LYMPHOCYTES 38.6 % (24.0-44.0); MANUAL DIFF NO; MCH 29.3 pg (26.0-34.0); MCHC 32.3 g/dL (28.0-37.0); MCV 90.9 fL (80.0-100.0); MONOCYTES 10.8 % (1.0-8.0); PLATELET COUNT 198 thou/uL (150-400); POLYS 47.1 % (36.0-66.0); RDW 14.3 % (10.5-14.5); WBC 4.9 thou/uL (4.0-11.0)
[2017-02-06 15:39] LABS: ANION GAP 3 mmol/L (7-16); BUN 9 mg/dL (7-18); CALCIUM 8.6 mg/dL (8.5-10.1); CHLORIDE 102 mmol/L (98-107); CO2 34 mmol/L (21-32); CREATININE 0.7 mg/dL (0.6-1.0); GLUCOSE 93 mg/dL (74-106); POTASSIUM 3.9 mmol/L (3.5-5.1); SODIUM 139 mmol/L (136-145)
[2017-02-06 15:48] LABS: ALBUMIN 2.9 g/dL (3.4-5.0); ALKALINE PHOSPHATASE 135 U/L (46-116); DIRECT BILIRUBIN < 0.1 mg/dL (<0.1-0.3); MAGNESIUM 1.8 mg/dL (1.8-2.4); SGOT 26 U/L (15-37); SGPT 63 U/L (30-65); TOTAL BILIRUBIN 0.2 mg/dL (<0.1-1.0); TOTAL PROTEIN 5.7 g/dL (6.4-8.2); TROPONIN-I < 0.04 ng/mL (<0.06)
[2017-02-06] MEDS ORDERED: RISPERDAL 1 MG T1 MG PO (16:57)
[2017-02-06 17:09] VITALS: BP 99/43
== END 2017-02-06 17:09 | disposition home or self-care (01) ==
LOC: ER 14:29
PROVIDERS: Emergency Medicine
DX: R41.0 Disorientation, unspecified (principal); M79.7 Fibromyalgia; G89.29 Other chronic pain; F41.9 Anxiety disorder, unspecified; F31.9 Bipolar disorder, unspecified; F43.10 Post-traumatic stress disorder, unspecified; Z88.8 Allergy status to other drugs, medicaments and biological substances; Z90.49 Acquired absence of other specified parts of digestive tract

== ENCOUNTER 2017-02-07 15:06 | Emergency (ER) | payer OTHER ==
[~2017-02-07] VITALS: Ht 170.2 cm; Wt 61.2 kg
--- NOTE | ~2017-02-07 | EKG ---
[address] [place] [address] ELECTROCARDIOGRAM REPORT Name: CASEERICKA Room #: DEP Ksenia#: [id number] Admission: 02/07/17 Attend Phys: Discharge: 02/07/17 Date of : 71 Report #: [id number] THIS REPORT FOR: //name// [facility] ED Test Date: 2017-02-07 Test Time: 17:05:36 Pat Name: ERICKA KAYE Department: Room: Gender: F Elementary Reading Tutor: BHARAT : 1975 Requested By: Lizeth Merino Order Number: [id number] MD: Zak Decker Measurements Intervals [place] Rate: 59 P: 63 [place]: 165 QRS: 57 QRSD: 86 T: 55 QT: 450 QTc: 446 Interpretive Statements Sinus rhythm Compared to ECG 01/28/2017 15:55:13 No significant changes Electronically Signed On 02-08-2017 8:27:09 [employer] by Zak Decker [email or web address] <ELECTRONICALLY SIGNED> By: Zak Decker MD 02/08/17 0827 1705 1705 MD LESLY Hunter
[~2017-02-07 15:06] MED LIST changes: +LASIX 40 MG TAB40 M2 PO
[2017-02-07 15:19] VITALS: BP 89/57
[2017-02-07 17:35] LABS: URINE BILIRUBIN NEGATIVE (Negative); URINE BLOOD NEGATIVE (Negative); URINE CLARITY CLEAR; URINE COLOR YELLOW; URINE GLUCOSE-RANDOM* NEGATIVE (Negative); URINE KETONES NEGATIVE (Negative); URINE NITRITE-REFLEX NEGATIVE (Negative); URINE PROTEIN (DIPSTICK) NEGATIVE (Negative); URINE SPECIFIC GRAVITY <= 1.005 (1.005-1.035); URINE UROBILINOGEN 0.2 E.U./dl (0.2-1.0)
[2017-02-07 17:37] LABS: URINE LEUKOCYTES-REFLEX 1+ (Negative)
[2017-02-07 17:43] LABS: BACTERIA-REFLEX 1-9 Few /HPF (None Seen); CASTS None Seen /LPF (None Seen); CRYSTALS None Seen /LPF (None Seen); SQUAMOUS 0-3 Few /LPF (0-3); URINE RBC None Seen /HPF (0-2); URINE WBC-REFLEX 0-5 Rare /HPF (0-5)
[2017-02-07 17:48] LABS: AMP/METHAMP Negative (Negative); BARBITURATES Negative (Negative); BENZODIAZEPINES Negative (Negative); COCAINE Negative (Negative); METHADONE POSITIVE (Negative); OPIATES Negative (Negative); PCP Negative (Negative)
[2017-02-07 17:49] LABS: HEMATOCRIT 35.6 % (37.0-47.0); HEMOGLOBIN 11.7 gm/dL (12.0-15.0); MCH 29.9 pg (26.0-34.0); MCHC 32.8 g/dL (28.0-37.0); MCV 91.1 fL (80.0-100.0); RBC 3.91 mil/uL (4.20-5.00); RDW 13.9 % (10.5-14.5); WBC 7.1 thou/uL (4.0-11.0)
[2017-02-07 18:01] LABS: CALCIUM 8.7 mg/dL (8.5-10.1); CREATININE 0.8 mg/dL (0.6-1.0); POTASSIUM 3.8 mmol/L (3.5-5.1)
== END 2017-02-07 18:45 | disposition home or self-care (01) ==
LOC: ER 15:06
PROVIDERS: Emergency Medicine
DX: R53.1 Weakness (principal); M79.7 Fibromyalgia; F43.10 Post-traumatic stress disorder, unspecified; G89.29 Other chronic pain; Z88.4 Allergy status to anesthetic agent; Z90.49 Acquired absence of other specified parts of digestive tract; F31.9 Bipolar disorder, unspecified; F41.9 Anxiety disorder, unspecified; Z98.890 Other specified postprocedural states

== ENCOUNTER 2017-03-01 15:31 | Emergency (ER) | payer OTHER ==
[~2017-03-01] VITALS: Ht 170.2 cm; Wt 63.5 kg
--- NOTE | ~2017-03-01 | EKG ---
[place] [address] [place] [address] ELECTROCARDIOGRAM REPORT Name: CASEERICKA [facility] [id number] Admission: 03/01/17 Attend Phys: Discharge: 03/01/17 Date of : 71 Report #: [id number] THIS REPORT FOR: //name// [facility] ED Test Date: 2017-03-01 Test Time: 17:54:04 Pat Name: ERICKA KAYE Department: Room: Gender: F Telegrapher Agent: [facility] : 1975 Requested By: Jason Smith Order Number: [id number] MD: Al Mata Measurements Intervals [place] Rate: 46 P: 67 [place]: 161 QRS: 48 QRSD: 84 T: 36 QT: 498 QTc: 436 Interpretive Statements Sinus bradycardia Low voltage, precordial leads Borderline T wave abnormalities Compared to ECG 02/07/2017 17:05:36 Low QRS voltage now present T-wave abnormality now present Sinus rhythm no longer present Electronically Signed On 03-01-2017 23:06:24 WAREHOUSE WORKER 2ND SHIFT by Al Mata [email or web address] <ELECTRONICALLY SIGNED> By: Al Mata MD 03/01/17 2306 175 175 Al Mata MD /ASCENCION
[2017-03-01 17:40] LABS: ABSOLUTE NEUTROPHILS 4.2 thou/uL (1.4-8.2); BASOPHILS 0.8 % (0.0-2.0); EOSINOPHILS 2.4 % (0.0-3.0); HEMATOCRIT 37.1 % (37.0-47.0); HEMOGLOBIN 12.2 gm/dL (12.0-15.0); LYMPHOCYTES 29.3 % (24.0-44.0); MCH 29.5 pg (26.0-34.0); MCHC 32.9 g/dL (28.0-37.0); MCV 89.8 fL (80.0-100.0); MONOCYTES 10.3 % (1.0-8.0); PLATELET COUNT 133 thou/uL (150-400); POLYS 57.2 % (36.0-66.0); RBC 4.13 mil/uL (4.20-5.00); RDW 14.6 % (10.5-14.5); WBC 7.3 thou/uL (4.0-11.0)
[2017-03-01 17:46] LABS: ANION GAP 7 mmol/L (7-16); BUN 7 mg/dL (7-18); CHLORIDE 101 mmol/L (98-107); CO2 29 mmol/L (21-32); GLUCOSE 191 mg/dL (74-106); SODIUM 137 mmol/L (136-145)
[2017-03-01 17:57] LABS: TROPONIN-I < 0.04 ng/mL (<0.06)
[2017-03-01 19:09] VITALS: BP 96/57
== END 2017-03-01 19:10 | disposition home or self-care (01) ==
LOC: ER 15:31
PROVIDERS: Emergency Medicine
DX: E87.6 Hypokalemia (principal); R07.89 Other chest pain; R06.02 Shortness of breath; M79.7 Fibromyalgia; G89.29 Other chronic pain; F31.9 Bipolar disorder, unspecified; F41.9 Anxiety disorder, unspecified; F43.10 Post-traumatic stress disorder, unspecified; Z90.49 Acquired absence of other specified parts of digestive tract; Z88.8 Allergy status to other drugs, medicaments and biological substances; Z86.711 Personal history of pulmonary embolism

== ENCOUNTER 2017-03-02 09:34 | Emergency (ER) | payer OTHER ==
[~2017-03-02] VITALS: Ht 170.2 cm; Wt 63.5 kg
[2017-03-02 12:34] LABS: HEMATOCRIT 40.6 % (37.0-47.0); HEMOGLOBIN 13.4 gm/dL (12.0-15.0); MCH 29.9 pg (26.0-34.0); MCV 90.8 fL (80.0-100.0); PLATELET COUNT 120 thou/uL (150-400); RBC 4.47 mil/uL (4.20-5.00); RDW 14.7 % (10.5-14.5)
[2017-03-02 12:47] LABS: CREATININE 0.8 mg/dL (0.6-1.0); POTASSIUM 3.8 mmol/L (3.5-5.1)
[2017-03-02 13:37] LABS: ABSOLUTE NEUTROPHILS 2.1 thou/uL (1.4-8.2)
[2017-03-02 15:41] VITALS: BP 110/41
== END 2017-03-02 15:43 | disposition home or self-care (01) ==
LOC: ER 09:34
PROVIDERS: Emergency Medicine
DX: R51 Headache (principal); R53.1 Weakness; M79.7 Fibromyalgia; G89.29 Other chronic pain; F31.9 Bipolar disorder, unspecified; F41.9 Anxiety disorder, unspecified; F43.10 Post-traumatic stress disorder, unspecified; Z86.711 Personal history of pulmonary embolism; Z88.8 Allergy status to other drugs, medicaments and biological substances

== ENCOUNTER 2017-03-07 16:50 | Emergency (ER) | payer OTHER ==
[~2017-03-07] VITALS: Ht 170.2 cm; Wt 63.5 kg
--- NOTE | ~2017-03-07 | EKG ---
[place] [address] [address] [place] [address] ELECTROCARDIOGRAM REPORT Name: CASEERICKA [facility] [id number] Admission: 03/07/17 Attend Phys: Discharge: 03/07/17 Date of : 71 Report #: [id number] THIS REPORT FOR: //name// [facility] ED Test Date: 2017-03-07 Test Time: 18:03:44 Pat Name: ERICKA KAYE Department: Room: Gender: F Talent Acquisition Consultant: BHARAT : 1975 Requested By: Lisset Calderón Order Number: [id number] MD: Blaze Aldridge Measurements Intervals [place] Rate: 60 P: 78 [place]: 140 QRS: 49 QRSD: 86 T: 47 QT: 457 QTc: 457 Interpretive Statements Sinus rhythm Nonspecific ST and T wave abnormality Compared to ECG 03/01/2017 17:54:04 Sinus bradycardia no longer present Electronically Signed On 03-08-2017 9:03:24 LOADER ENGINEER by Blaze Aldridge [email or web address] <ELECTRONICALLY SIGNED> By: Blaze Aldridge MD, LOCATED WITHIN [facility] 03/08/17 0903 1803 02 Blaze Aldridge MD, FACC /EPI
[2017-03-07 16:54] VITALS: BP 101/67
== END 2017-03-07 18:20 | disposition home or self-care (01) ==
LOC: ER 16:50
DX: F41.9 Anxiety disorder, unspecified (principal); F31.9 Bipolar disorder, unspecified; G89.4 Chronic pain syndrome

== ENCOUNTER 2017-07-23 15:38 | Emergency (ER) | payer OTHER ==
[~2017-07-23] VITALS: Ht 165.1 cm; Wt 59.0 kg
--- NOTE | ~2017-07-23 | EKG ---
[place] [address] [address] [facility] [address] [place] [address] ELECTROCARDIOGRAM REPORT Name: CASEERICKA Room #: [facility]P [facility] [id number] Admission: 07/23/17 Attend Phys: Discharge: 07/23/17 Date of : 71 Report #: [id number] THIS REPORT FOR: //name// [facility] ED Test Date: 2017-07-23 Test Time: 16:11:32 Pat Name: ERICKA KAYE Department: Room: Gender: F Clinical Lab Technologist: Fabricio MCCOY : 1975 Requested By: Carolina Burns Order Number: [id number] MD: Blaze Aldridge Measurements Intervals [place] Rate: 65 P: 72 [place]: 156 QRS: 66 QRSD: 89 T: 59 QT: 417 QTc: 434 Interpretive Statements Sinus rhythm No significant abnormality Compared to ECG 03/07/2017 18:03:44 No significant change was found Electronically Signed On 07-24-2017 8:05:24 CDT by Blaze Aldridge [email or web address] <ELECTRONICALLY SIGNED> By: Blaze Aldridge MD, [facility] 07/24/17 0805 1611 1611 Blaze Aldridge MD, FACC /EPI
[2017-07-23 16:53] LABS: ABSOLUTE NEUTROPHILS 3.1 thou/uL (1.4-8.2); EOSINOPHILS 2.5 % (0.0-3.0); HEMATOCRIT 39.3 % (37.0-47.0); HEMOGLOBIN 13.3 gm/dL (12.0-15.0); LYMPHOCYTES 35.4 % (24.0-44.0); MCH 31.1 pg (26.0-34.0); MCHC 33.8 g/dL (28.0-37.0); MCV 91.9 fL (80.0-100.0); MONOCYTES 11.5 % (1.0-8.0); PLATELET COUNT 185 thou/uL (150-400); POLYS 49.6 % (36.0-66.0); RBC 4.27 mil/uL (4.20-5.00); WBC 6.3 thou/uL (4.0-11.0)
[2017-07-23 17:01] LABS: CALCIUM 8.7 mg/dL (8.5-10.1); CREATININE 1.2 mg/dL (0.6-1.0); POTASSIUM 3.1 mmol/L (3.5-5.1)
[2017-07-23 17:06] LABS: ALBUMIN 3.9 g/dL (3.4-5.0); TOTAL BILIRUBIN 0.2 mg/dL (<0.1-1.0)
[2017-07-23 17:08] LABS: LIPASE 204 U/L (73-393); TROPONIN-I < 0.04 ng/mL (<0.06)
[2017-07-23 17:13] LABS: PROTIME 10.5 Seconds (9.3-11.4)
[2017-07-23 17:25] LABS: URINE BILIRUBIN NEGATIVE (Negative); URINE BLOOD 1+ (Negative); URINE CLARITY CLEAR; URINE COLOR YELLOW; URINE GLUCOSE-RANDOM* NEGATIVE (Negative); URINE KETONES NEGATIVE (Negative); URINE LEUKOCYTES-REFLEX NEGATIVE (Negative); URINE NITRITE-REFLEX NEGATIVE (Negative); URINE PROTEIN (DIPSTICK) NEGATIVE (Negative); URINE UROBILINOGEN 0.2 E.U./dl (0.2-1.0)
[2017-07-23 17:33] LABS: BACTERIA-REFLEX None Seen /HPF (None Seen); CASTS None Seen /LPF (None Seen); CRYSTALS None Seen /LPF (None Seen); SQUAMOUS 0-3 Few /LPF (0-3); URINE RBC 0-2 Rare /HPF (0-2); URINE WBC-REFLEX None Seen /HPF (0-5)
[2017-07-23 17:36] LABS: AMP/METHAMP Negative (Negative); BARBITURATES Negative (Negative); BENZODIAZEPINES Negative (Negative); COCAINE Negative (Negative); METHADONE Negative (Negative); OPIATES Negative (Negative); PCP Negative (Negative)
[2017-07-23] MEDS ORDERED: K-DUR 20 MEQ T20 MEQ PO (17:49)
[2017-07-23 19:24] VITALS: BP 96/52
== END 2017-07-23 19:25 | disposition home or self-care (01) ==
LOC: ER 15:38
PROVIDERS: Physician Assistant
DX: R07.89 Other chest pain (principal); E87.6 Hypokalemia; R10.11 Right upper quadrant pain; R10.12 Left upper quadrant pain; M79.7 Fibromyalgia; F31.9 Bipolar disorder, unspecified; F41.9 Anxiety disorder, unspecified; Z90.49 Acquired absence of other specified parts of digestive tract; Z88.8 Allergy status to other drugs, medicaments and biological substances

== ENCOUNTER 2017-12-27 11:56 | Emergency (ER) | payer OTHER ==
[~2017-12-27] VITALS: Ht 170.2 cm; Wt 69.4 kg
--- NOTE | ~2017-12-27 | EKG ---
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
[~2017-12-27 11:56] MED LIST changes: +K-DUR 20 MEQ T20 MEQ PO
[2017-12-27] MEDS ORDERED: ATORVASTATIN CA40 MG PO (12:13)
[2017-12-27] MEDS ORDERED: VISTARIL 25 MG25 M1 PO (12:14)
[2017-12-27 13:00] LABS: ABSOLUTE NEUTROPHILS 3.3 thou/uL (1.4-8.2); BASOPHILS 1.1 % (0.0-2.0); EOSINOPHILS 4.7 % (0.0-3.0); HEMOGLOBIN 13.9 gm/dL (12.0-15.0); LYMPHOCYTES 34.2 % (24.0-44.0); MCH 29.5 pg (26.0-34.0); MCHC 33.8 g/dL (28.0-37.0); MCV 87.3 fL (80.0-100.0); MONOCYTES 10.5 % (1.0-8.0); PLATELET COUNT 217 thou/uL (150-400); POLYS 49.5 % (36.0-66.0); RDW 13.5 % (10.5-14.5); WBC 6.8 thou/uL (4.0-11.0)
[2017-12-27 13:13] LABS: ANION GAP 10 mmol/L (7-16); BUN 22 mg/dL (7-18); CALCIUM 8.7 mg/dL (8.5-10.1); CHLORIDE 98 mmol/L (98-107); CO2 28 mmol/L (21-32); CREATININE 1.1 mg/dL (0.6-1.0); GLUCOSE 91 mg/dL (74-106); POTASSIUM 3.3 mmol/L (3.5-5.1)
[2017-12-27 13:14] LABS: SODIUM 136 mmol/L (136-145)
[2017-12-27 13:22] LABS: SGOT 26 U/L (15-37); SGPT 20 U/L (30-65); TOTAL BILIRUBIN 0.4 mg/dL (<0.1-1.0); TOTAL PROTEIN 7.4 g/dL (6.4-8.2); TROPONIN-I <0.06 ng/mL (<0.06)
[2017-12-27 14:26] VITALS: BP 94/56
== END 2017-12-27 14:27 | disposition home or self-care (01) ==
LOC: ER 11:56
PROVIDERS: Physician Assistant
DX: R07.89 Other chest pain (principal); I95.9 Hypotension, unspecified; F31.9 Bipolar disorder, unspecified; M79.7 Fibromyalgia; G89.4 Chronic pain syndrome; F41.9 Anxiety disorder, unspecified; Z86.2 Personal history of diseases of the blood and blood-forming organs and certain disorders involving the immune mechanism; Z88.4 Allergy status to anesthetic agent

== ENCOUNTER → 2018-02-06 | Outpatient (CLI) | payer OTHER ==
[~2018-02-06] MED LIST changes: +ATORVASTATIN CA40 MG PO; +VISTARIL 25 MG25 M1 PO
== END ==
LOC: RAD 10:37
DX: R06.02 Shortness of breath (principal); R06.00 Dyspnea, unspecified

== ENCOUNTER 2018-09-11 08:39 | Emergency (ER) | payer OTHER ==
[~2018-09-11] VITALS: Ht 172.7 cm; Wt 67.1 kg
[2018-09-11 09:33] LABS: ABSOLUTE NEUTROPHILS 4.7 thou/uL (1.4-8.2); BASOPHILS 0.6 % (0.0-2.0); EOSINOPHILS 0.2 % (0.0-3.0); HEMATOCRIT 45.5 % (37.0-47.0); HEMOGLOBIN 14.9 gm/dL (12.0-15.0); LYMPHOCYTES 26.7 % (24.0-44.0); MCH 29.6 pg (26.0-34.0); MCHC 32.8 g/dL (28.0-37.0); MCV 90.3 fL (80.0-100.0); MONOCYTES 9.7 % (1.0-8.0); PLATELET COUNT 261 thou/uL (150-400); POLYS 62.8 % (36.0-66.0); RBC 5.04 mil/uL (4.20-5.00); RDW 15.8 % (10.5-14.5); WBC 7.5 thou/uL (4.0-11.0)
[2018-09-11 09:36] LABS: ANION GAP 17 mmol/L (7-16); BUN 6 mg/dL (7-18); CHLORIDE 100 mmol/L (98-107); CO2 19 mmol/L (21-32); CREATININE 1.2 mg/dL (0.6-1.0); GLUCOSE 98 mg/dL (74-106); POTASSIUM 3.1 mmol/L (3.5-5.1); SODIUM 136 mmol/L (136-145)
[2018-09-11 09:47] LABS: ALBUMIN 4.9 g/dL (3.4-5.0); DIRECT BILIRUBIN < 0.1 mg/dL (<0.1-0.3); LIPASE 169 U/L (73-393); SGOT 15 U/L (15-37); SGPT 17 U/L (30-65); TOTAL BILIRUBIN 0.3 mg/dL (<0.1-1.0); TOTAL PROTEIN 8.7 g/dL (6.4-8.2); TROPONIN-I <0.06 ng/mL (<0.06)
[2018-09-11] MEDS ORDERED: PROTONIX40 M1 PO (11:44)
[2018-09-11] MEDS ORDERED: CARAFATE 1 GM TA1 G1 PO (11:44)
[2018-09-11] MEDS ORDERED: ZOFRAN ODT4 MG PO (11:44)
[2018-09-11 12:27] VITALS: BP 112/80
--- NOTE | 2018-09-11 12:56 | EKG ---
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: : 1975 Requested By: Jason Smith Order Number: [id number] MD: Anastacio Hodges Measurements Intervals [place] Rate: 85 P: 66 [place]: 126 QRS: 62 QRSD: 81 T: 54 QT: 366 QTc: 436 Interpretive Statements Sinus rhythm Early transition Specific ST-T wave changes Compared to ECG 12/27/2017 12:17:02 No significant changes Electronically Signed On 09-11-2018 12:56:11 CDT by Anastacio Hodges [email or web address] ��������������������������������������������� <ELECTRONICALLY SIGNED> ���������������������������������������� By: Anastacio Hodges MD ��������������������������������������������� 09/11/18 1256 0928 7 Anastacio Hodges MD /ASCENCION
== END 2018-09-11 12:28 | disposition home or self-care (01) ==
LOC: ER 08:39
PROVIDERS: Emergency Medicine
DX: S80.12XA Contusion of left lower leg, initial encounter (principal); R10.13 Epigastric pain; R06.02 Shortness of breath; F31.9 Bipolar disorder, unspecified; F41.9 Anxiety disorder, unspecified; I51.7 Cardiomegaly; G89.4 Chronic pain syndrome; K92.1 Melena; Z79.899 Other long term (current) drug therapy; Z88.8 Allergy status to other drugs, medicaments and biological substances; Z86.718 Personal history of other venous thrombosis and embolism; Z86.711 Personal history of pulmonary embolism; X58.XXXA Exposure to other specified factors, initial encounter; Y93.89 Activity, other specified; Y92.89 Other specified places as the place of occurrence of the external cause; Y99.8 Other external cause status

== ENCOUNTER 2019-01-16 13:30 | Emergency (ER) | payer OTHER ==
[~2019-01-16] VITALS: Ht 157.5 cm; Wt 63.5 kg
[~2019-01-16 13:30] MED LIST changes: +CARAFATE 1 GM TA1 G1 PO; +PROTONIX40 M1 PO; +ZOFRAN ODT4 MG PO
[2019-01-16 15:12] LABS: ABSOLUTE NEUTROPHILS 3.3 thou/uL (1.4-8.2); BASOPHILS 0.6 % (0.0-2.0); HEMATOCRIT 35.7 % (37.0-47.0); HEMOGLOBIN 11.4 gm/dL (12.0-15.0); LYMPHOCYTES 31.8 % (24.0-44.0); MCH 26.1 pg (26.0-34.0); MCHC 32.1 g/dL (28.0-37.0); MCV 81.4 fL (80.0-100.0); MONOCYTES 8.7 % (1.0-8.0); PLATELET COUNT 277 thou/uL (150-400); POLYS 57.9 % (36.0-66.0); RBC 4.38 mil/uL (4.20-5.00); RDW 16.9 % (10.5-14.5); WBC 5.6 thou/uL (4.0-11.0)
[2019-01-16 15:24] LABS: CALCIUM 9.1 mg/dL (8.5-10.1); CREATININE 1.1 mg/dL (0.6-1.0); MAGNESIUM 1.8 mg/dL (1.8-2.4); POTASSIUM 3.2 mmol/L (3.5-5.1)
[2019-01-16 15:34] LABS: URINE BILIRUBIN NEGATIVE (Negative); URINE BLOOD NEGATIVE (Negative); URINE CLARITY CLEAR; URINE COLOR YELLOW; URINE GLUCOSE-RANDOM* NEGATIVE (Negative); URINE KETONES NEGATIVE (Negative); URINE LEUKOCYTES-REFLEX NEGATIVE (Negative); URINE NITRITE-REFLEX NEGATIVE (Negative); URINE PROTEIN (DIPSTICK) NEGATIVE (Negative); URINE SPECIFIC GRAVITY 1.015 (1.005-1.035); URINE UROBILINOGEN 0.2 E.U./dl (0.2-1.0)
[2019-01-16 16:17] VITALS: BP 120/78
--- NOTE | 2019-01-17 10:47 | EKG ---
[place] [address] [address] [facility] [place] [address] ELECTROCARDIOGRAM REPORT Name: CASEERICKA Room #: [facility]P [facility] [id number] Admission: 01/16/19 Attend Phys: Discharge: 01/16/19 Date of : 71 Report #: [id number] THIS REPORT FOR: //name// [facility] ED Test Date: 2019-01-16 Test Time: 13:50:38 Pat Name: ERICKA KAYE Department: Room: Gender: F Ppap Coordinator: [facility] : 1975 Requested By: Dann Alvarez Order Number: [id number] MD: Zak Decker Measurements Intervals [place] Rate: 94 P: 79 [place]: 128 QRS: 65 QRSD: 87 T: 53 QT: 341 QTc: 427 Interpretive Statements Sinus rhythm Minimal ST depression, inferior leads Compared to ECG 09/11/2018 09:28:08 ST (T wave) deviation now present Electronically Signed On 01-17-2019 10:46:59 SUPERVISOR SPECIAL SERVICES by Zak Decker [email or web address] <ELECTRONICALLY SIGNED> By: Zak Decker MD 01/17/19 1046 1350 1350 Zak Decker MD /ASCENCION
== END 2019-01-16 16:47 | disposition home or self-care (01) ==
LOC: ER 13:30
PROVIDERS: Emergency Medicine
DX: E87.6 Hypokalemia (principal); R53.81 Other malaise; M79.7 Fibromyalgia; G89.4 Chronic pain syndrome; I48.91 Unspecified atrial fibrillation; Z98.84 Bariatric surgery status; Z88.4 Allergy status to anesthetic agent; Z79.899 Other long term (current) drug therapy; Z90.49 Acquired absence of other specified parts of digestive tract; Z86.73 Personal history of transient ischemic attack (TIA), and cerebral infarction without residual deficits

== ENCOUNTER 2019-02-17 08:59 | Emergency (ER) | payer OTHER ==
[~2019-02-17] VITALS: Ht 170.2 cm; Wt 76.2 kg
[2019-02-17 09:42] LABS: ABSOLUTE NEUTROPHILS 3.9 thou/uL (1.4-8.2); BASOPHILS 1.3 % (0.0-2.0); EOSINOPHILS 1.5 % (0.0-3.0); HEMOGLOBIN 10.9 gm/dL (12.0-15.0); LYMPHOCYTES 36.1 % (24.0-44.0); MCH 25.7 pg (26.0-34.0); MCHC 31.3 g/dL (28.0-37.0); MONOCYTES 9.7 % (1.0-8.0); PLATELET COUNT 314 thou/uL (150-400); POLYS 51.4 % (36.0-66.0); RBC 4.27 mil/uL (4.20-5.00); RDW 17.1 % (10.5-14.5); WBC 7.5 thou/uL (4.0-11.0)
[2019-02-17 09:53] LABS: CALCIUM 9.2 mg/dL (8.5-10.1); CREATININE 1.1 mg/dL (0.6-1.0); MAGNESIUM 1.8 mg/dL (1.8-2.4)
[2019-02-17] MEDS ORDERED: CLEOCIN HCL150 MG PO (12:31)
[2019-02-17 12:49] VITALS: BP 97/59
== END 2019-02-17 13:10 | disposition home or self-care (01) ==
LOC: ER 08:59
PROVIDERS: Emergency Medicine
DX: L03.211 Cellulitis of face (principal); J34.89 Other specified disorders of nose and nasal sinuses; F41.9 Anxiety disorder, unspecified; G89.4 Chronic pain syndrome; F31.9 Bipolar disorder, unspecified; Z88.4 Allergy status to anesthetic agent

== ENCOUNTER 2019-07-01 20:11 | Emergency (ER) | payer OTHER ==
[~2019-07-01] VITALS: Ht 170.2 cm; Wt 68.0 kg
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
[~2019-07-01 20:11] MED LIST changes: +CLEOCIN HCL150 MG PO
[2019-07-01 20:50] LABS: ABSOLUTE NEUTROPHILS 1.3 thou/uL (1.4-8.2); BASOPHILS 0.3 % (0.0-2.0); EOSINOPHILS 8.8 % (0.0-3.0); HEMATOCRIT 34.6 % (37.0-47.0); HEMOGLOBIN 11.4 gm/dL (12.0-15.0); MCH 28.7 pg (26.0-34.0); MCV 86.9 fL (80.0-100.0); MONOCYTES 10.9 % (1.0-8.0); PLATELET COUNT 197 thou/uL (150-400); RBC 3.99 mil/uL (4.20-5.00); RDW 23.3 % (10.5-14.5); WBC 4.8 thou/uL (4.0-11.0)
[2019-07-01 20:54] LABS: URINE BILIRUBIN NEGATIVE (Negative); URINE BLOOD NEGATIVE (Negative); URINE CLARITY CLEAR; URINE COLOR YELLOW; URINE GLUCOSE-RANDOM* NEGATIVE (Negative); URINE KETONES NEGATIVE (Negative); URINE LEUKOCYTES-REFLEX NEGATIVE (Negative); URINE NITRITE-REFLEX NEGATIVE (Negative); URINE PROTEIN (DIPSTICK) NEGATIVE (Negative); URINE SPECIFIC GRAVITY <= 1.005 (1.005-1.035); URINE UROBILINOGEN 0.2 E.U./dl (0.2-1.0)
[2019-07-01 20:55] LABS: CALCIUM 8.3 mg/dL (8.5-10.1); CREATININE 1.2 mg/dL (0.6-1.0); POTASSIUM 3.2 mmol/L (3.5-5.1)
[2019-07-01 21:54] VITALS: BP 100/57
[2019-07-02] MEDS ORDERED: LEXAPRO20 MG PO (10:01)
== END 2019-07-01 21:50 | disposition home or self-care (01) ==
LOC: ER 20:11
PROVIDERS: Emergency Medicine
DX: R53.81 Other malaise (principal); R41.82 Altered mental status, unspecified; R06.02 Shortness of breath; R07.9 Chest pain, unspecified; M79.7 Fibromyalgia; Z79.899 Other long term (current) drug therapy; Z88.4 Allergy status to anesthetic agent

== ENCOUNTER 2019-07-02 09:25 | Emergency (ER) | payer OTHER ==
[~2019-07-02] VITALS: Ht 170.2 cm; Wt 68.0 kg
[2019-07-02] MEDS ORDERED: LEXAPRO20 MG PO (10:01)
[2019-07-02 10:49] VITALS: BP 97/59
== END 2019-07-02 10:49 | disposition home or self-care (01) ==
LOC: ER 09:25
DX: R53.83 Other fatigue (principal); R53.81 Other malaise; M79.7 Fibromyalgia; F31.9 Bipolar disorder, unspecified; F41.9 Anxiety disorder, unspecified; Z90.49 Acquired absence of other specified parts of digestive tract; Z86.711 Personal history of pulmonary embolism; Z98.82 Breast implant status; Z88.8 Allergy status to other drugs, medicaments and biological substances

== ENCOUNTER → 2019-07-02 | Outpatient (CLI) | payer OTHER | LOC: CAT 11:53 | DX: D35.4 Benign neoplasm of pineal gland (principal); G44.52 New daily persistent headache (NDPH) ==

== ENCOUNTER 2019-07-09 11:42 | Emergency (ER) | payer OTHER ==
[~2019-07-09] VITALS: Ht 170.2 cm; Wt 68.0 kg
[2019-07-09] MEDS ORDERED: METHADONE PO (11:51)
[2019-07-09 12:21] LABS: URINE BILIRUBIN NEGATIVE (Negative); URINE BLOOD NEGATIVE (Negative); URINE CLARITY CLEAR; URINE COLOR YELLOW; URINE GLUCOSE-RANDOM* NEGATIVE (Negative); URINE KETONES NEGATIVE (Negative); URINE LEUKOCYTES-REFLEX NEGATIVE (Negative); URINE NITRITE-REFLEX NEGATIVE (Negative); URINE PROTEIN (DIPSTICK) NEGATIVE (Negative); URINE SPECIFIC GRAVITY <= 1.005 (1.005-1.035); URINE UROBILINOGEN 0.2 E.U./dl (0.2-1.0)
[2019-07-09 12:28] LABS: AMP/METHAMP Negative (Negative); BARBITURATES Negative (Negative); BENZODIAZEPINES Negative (Negative); COCAINE Negative (Negative); METHADONE POSITIVE (Negative); OPIATES Negative (Negative); PCP Negative (Negative)
[2019-07-09 12:33] LABS: ABSOLUTE NEUTROPHILS 1.6 thou/uL (1.4-8.2); BASOPHILS 1.2 % (0.0-2.0); EOSINOPHILS 5.1 % (0.0-3.0); HEMATOCRIT 32.8 % (37.0-47.0); HEMOGLOBIN 10.5 gm/dL (12.0-15.0); LYMPHOCYTES 34.1 % (24.0-44.0); MCH 27.9 pg (26.0-34.0); MCHC 32.2 g/dL (28.0-37.0); MCV 86.5 fL (80.0-100.0); MONOCYTES 11.9 % (1.0-8.0); PLATELET COUNT 177 thou/uL (150-400); POLYS 47.7 % (36.0-66.0); RBC 3.79 mil/uL (4.20-5.00); RDW 22.7 % (10.5-14.5); WBC 3.3 thou/uL (4.0-11.0)
[2019-07-09 12:41] LABS: CALCIUM 8.2 mg/dL (8.5-10.1); CREATININE 1.1 mg/dL (0.6-1.0); POTASSIUM 3.8 mmol/L (3.5-5.1)
[2019-07-09 12:47] LABS: ALBUMIN 3.5 g/dL (3.4-5.0); MAGNESIUM 1.9 mg/dL (1.8-2.4); TOTAL BILIRUBIN 0.3 mg/dL (0.2-1.0); TOTAL PROTEIN 6.2 g/dL (6.4-8.2)
[2019-07-09 13:14] LABS: ANISOCYTOSIS 1+
[2019-07-09 13:15] VITALS: BP 100/64
[2019-07-10] MEDS ORDERED: DOXYCYCLINE 10100 M2 PO (18:18)
== END 2019-07-09 13:31 | disposition home or self-care (01) ==
LOC: ER 11:42
PROVIDERS: Physician Assistant
DX: S90.422A Blister (nonthermal), left great toe, initial encounter (principal); S90.425A Blister (nonthermal), left lesser toe(s), initial encounter; R53.1 Weakness; M79.7 Fibromyalgia; F31.9 Bipolar disorder, unspecified; F41.9 Anxiety disorder, unspecified; Z90.49 Acquired absence of other specified parts of digestive tract; Z86.711 Personal history of pulmonary embolism; Z86.73 Personal history of transient ischemic attack (TIA), and cerebral infarction without residual deficits; Z88.8 Allergy status to other drugs, medicaments and biological substances; X58.XXXA Exposure to other specified factors, initial encounter; Y93.89 Activity, other specified; Y92.89 Other specified places as the place of occurrence of the external cause; Y99.8 Other external cause status

== ENCOUNTER 2019-07-10 18:15 | Emergency (ER) | payer OTHER ==
[~2019-07-10] VITALS: Ht 172.7 cm; Wt 66.7 kg
--- NOTE | ~2019-07-10 | EMS ---
[address] [address] EMS Patient Care Report Name: CASE,ERICKA ROSE Room #: REG MORE Mccormack#: [id number] Admission: 07/10/19 Attend Phys: Discharge: Date of : 71 Report #: [id number] THIS REPORT FOR: //name// Report Transmitted: 07/10/2019 17:49 EMS Care Summary [facility] MED-ACT Incident [id number] @ 07/10/2019 17:32 Incident Location [address] [place] [address] [place] [address] Patient NARESH ROSE CASE Female, 44 Years 1975 Patient Address [address] [place] [address] Patient History Anxiety,Genital Herpes, Patient Allergies No known allergies, Patient Medications Lexapro, Methadone, Clonazepam, Doxycycline, Aspirin, Acyclovir, Ibuprofen, Chief Complaint My feet and hands are burning Disposition Transported No Lights/[place] Dispatch Reason Sick Person Transported To [facility] Narrative HISTORY. Pt states she has been outside walking a lot today. Outside temp is 76 degrees with full sun. Pt states her feet and hands began to feel like they are burning. Pt was placed on Doxycycline yesterday for a possible infection in her foot. No SOB, or cough. Pt does have a low grade fever of 100*F by temporal [facility] [address] [place] [address] EMS Patient Care Report Name: CASE,ERICKA ROSE Room #: REG [facility] [id number] Admission: 07/10/19 Attend Phys: Discharge: Date of : 71 Report #: [id number] artery thermometer. Pt has not been in contact with anyone who has tested positive for COVID-19. ASSESSMENT INDICATED IN CHART. TREATMENT. Pt is able to ambulate to unit/cot. Shoes, shocks and bandages are removed. No active bleeding noted to blisters. Pt asks for a cold back to place on her hands. No additional. TRANSPORT. [facility] is destination. [facility] is contacted. Information is given. VS monitored. No change. Pt remains stable and alert. DISPOSITION. Pt is able to slide herself from EMS cot to ED bed. Pt report and pts personal items are given to nursing. M 1134 is clear. Initial Vitals @17:47P: 80,R: 16,BP: 133/78,Pain: 4/10,GCS: 15,SpO2: 97,Revised Trauma: 12, @18:00P: 78,R: 16,BP: 115/72,GCS: 15,SpO2: 98,Revised Trauma: 12, Assessments @17:53MENTAL:Place Oriented,Time Oriented,Person Oriented,Event Oriented,SKIN:HEENT:LUNG SOUNDS:ABDOMEN:PELVIS//GI:EXTREMITIES:Left Leg: Other,Right Leg: Other,Left Arm: No Abnormalities,Right Arm: No Abnormalities,PULSE:Radial: 2+ Normal,NEURO: Impression Extremity Pain Timeline 17:29,Call Received 17:,[facility] 17[facility],Dispatched 17:33,En Route 17:40,On Scene 17:41,At Patient 17:47,BP: 133/78 M,PULSE: 80,RR: 16 R,SPO2: 97 Ox,ETCO2: ,BG: ,PAIN: 4,GCS: 15, 17:59,Depart Scene 18:00,BP: 115/72 M,PULSE: 78,RR: 16 R,SPO2: 98 Ox,ETCO2: ,BG: ,PAIN: ,GCS: 15, 18:08,At Destination 18:22,Call Closed Disclaimer v1.1 Copyright 2020 [employer] This EMS Care Summary contains data elements from the applicable legal record (which may be displayed differently). It is designed to provide pertinent [address] [address] EMS Patient Care Report Name: CASEERICKA Room #: REG MORE Mccormack#: [id number] Admission: 07/10/19 Attend Phys: Discharge: Date of : 71 Report #: [id number] information for the following purposes: continuity of care, clinical quality, and state data reporting. The complete legal record is available to ED staff and administrators of the receiving hospital in [employer]'s Patient Tracker. All data is provided "as is."
[~2019-07-10 18:15] MED LIST changes: +METHADONE PO
[2019-07-10] MEDS ORDERED: DOXYCYCLINE 10100 M2 PO (18:18)
[2019-07-10 19:40] VITALS: BP 108/68
== END 2019-07-10 20:20 | disposition home or self-care (01) ==
LOC: ER 18:15
DX: L55.1 Sunburn of second degree (principal); R11.0 Nausea; R07.89 Other chest pain; M79.7 Fibromyalgia; G89.29 Other chronic pain; Z88.4 Allergy status to anesthetic agent; Z79.899 Other long term (current) drug therapy; Z86.73 Personal history of transient ischemic attack (TIA), and cerebral infarction without residual deficits

== ENCOUNTER 2019-10-26 08:58 | Emergency (ER) | payer OTHER ==
[~2019-10-26] VITALS: Ht 170.2 cm; Wt 55.8 kg
[~2019-10-26 08:58] MED LIST changes: +DOXYCYCLINE 10100 M2 PO
--- NOTE | 2019-10-26 11:11 | EKG ---
[facility] [place] [address] ELECTROCARDIOGRAM REPORT Name: CASE,ERICKA ROSE Room #: REG [facility].#: [id number] Admission: 10/26/19 Attend Phys: Discharge: Date of : 71 Report #: [id number] THIS REPORT FOR: cc: Stef See MD, Neal A. MD Santiago, Patrick MD [facility] ~ THIS REPORT FOR: //name// [facility] ED Test Date: 2019-10-26 Test Time: 09:20:58 Pat Name: ERICKA KAYE Department: Room: Gender: Supervisor Phosphorus Processing: [facility] : 1975 Requested By: Dann Alvarez Order Number: [id number] : Chris Cabral Measurements Intervals [place] Rate: 66 P: 73 [place]: 142 QRS: 60 QRSD: 77 T: 49 QT: 415 QTc: 435 Interpretive Statements Sinus rhythm Compared to ECG 08/27/2019 17:00:03 Sinus bradycardia no longer present Electronically Signed On 10-26-2019 11:11:31 CDT by Chris Cabral [email or web address] <ELECTRONICALLY SIGNED> By: Chris Cabral MD, FACC 10/26/19 1111 9 9 Chris Cabral MD, [facility] /EPI
[2019-10-26] MEDS ORDERED: EXCEDRIN CAPLE1 EACH PO (13:16)
[2019-10-26 16:46] LABS: ABSOLUTE NEUTROPHILS 1.8 thou/uL (1.4-8.2); BASOPHILS 0.4 % (0.0-2.0); EOSINOPHILS 4.4 % (0.0-3.0); HEMATOCRIT 28.1 % (37.0-47.0); HEMOGLOBIN 9.2 gm/dL (12.0-15.0); LYMPHOCYTES 37.9 % (24.0-44.0); MCH 28.8 pg (26.0-34.0); MCHC 32.7 g/dL (28.0-37.0); MCV 87.9 fL (80.0-100.0); MONOCYTES 9.2 % (1.0-8.0); PLATELET COUNT 157 thou/uL (150-400); POLYS 48.1 % (36.0-66.0); RDW 17.6 % (10.5-14.5); WBC 3.7 thou/uL (4.0-11.0)
[2019-10-26 16:53] LABS: ANION GAP 10 mmol/L (7-16); BUN 10 mg/dL (7-18); CHLORIDE 104 mmol/L (98-107); CO2 25 mmol/L (21-32); CREATININE 0.8 mg/dL (0.6-1.0); GLUCOSE 83 mg/dL (74-106); POTASSIUM 3.6 mmol/L (3.5-5.1); SODIUM 139 mmol/L (136-145)
[2019-10-26 17:02] LABS: TROPONIN-I <0.06 ng/mL (<0.06)
[2019-10-26 17:43] VITALS: BP 88/59
--- NOTE | 2019-10-27 08:17 | EKG ---
[facility] [place] [address] [place] [address] ELECTROCARDIOGRAM REPORT Name: CASE,ERICKA ROSE Room #: [facility] [id number] Admission: 10/26/19 Attend Phys: Discharge: 10/26/19 Date of : 71 Report #: [id number] THIS REPORT FOR: cc: Stef See MD, Neal A. MD Couchonnal, Luis F. MD ~ THIS REPORT FOR: //name// [facility] ED Test Date: 2019-10-26 Test Time: 16:36:09 Pat Name: ERICKA KAYE Department: Room: Gender: Inventory Clerk: aRdha : 1975 Requested By: Dann Alvarez Order Number: [id number] : Zak Decker Measurements Intervals [place] Rate: 57 P: 60 [place]: 151 QRS: 60 QRSD: 81 T: 48 QT: 433 QTc: 422 Interpretive Statements Sinus rhythm Low voltage, precordial leads Compared to ECG 10/26/2019 09:20:58 Low QRS voltage now present Electronically Signed On 10-27-2019 8:17:04 CDT by Zak Decker [email or web address] <ELECTRONICALLY SIGNED> By: Zak Decker MD 10/27/19 0817 1636 1636 Zak Decker MD /EPI
== END 2019-10-26 17:49 | disposition home or self-care (01) ==
LOC: ER 08:58
PROVIDERS: Emergency Medicine
DX: R07.89 Other chest pain (principal); H53.8 Other visual disturbances; T74.21XA Adult sexual abuse, confirmed, initial encounter; M79.7 Fibromyalgia; F31.9 Bipolar disorder, unspecified; F41.9 Anxiety disorder, unspecified; Z90.49 Acquired absence of other specified parts of digestive tract; Z86.73 Personal history of transient ischemic attack (TIA), and cerebral infarction without residual deficits; Z79.899 Other long term (current) drug therapy; Z79.82 Long term (current) use of aspirin; Z88.4 Allergy status to anesthetic agent

== ENCOUNTER 2019-11-25 09:57 | Emergency (ER) | payer OTHER ==
[~2019-11-25] VITALS: Ht 170.2 cm; Wt 55.8 kg
[~2019-11-25 09:57] MED LIST changes: +EXCEDRIN CAPLE1 EACH PO
[2019-11-25 10:39] LABS: BASOPHILS 0.8 % (0.0-2.0); EOSINOPHILS 3.5 % (0.0-3.0); HEMATOCRIT 32.9 % (37.0-47.0); HEMOGLOBIN 10.7 gm/dL (12.0-15.0); LYMPHOCYTES 43.2 % (24.0-44.0); MCHC 32.4 g/dL (28.0-37.0); MCV 89.7 fL (80.0-100.0); MONOCYTES 9.1 % (1.0-8.0); PLATELET COUNT 178 thou/uL (150-400); POLYS 43.4 % (36.0-66.0); RBC 3.67 mil/uL (4.20-5.00); RDW 17.1 % (10.5-14.5)
[2019-11-25 10:57] LABS: ANION GAP 16 mmol/L (7-16); BUN 11 mg/dL (7-18); CALCIUM 8.8 mg/dL (8.5-10.1); CHLORIDE 105 mmol/L (98-107); CO2 20 mmol/L (21-32); CREATININE 0.9 mg/dL (0.6-1.0); GLUCOSE 100 mg/dL (74-106); POTASSIUM 3.5 mmol/L (3.5-5.1); SODIUM 141 mmol/L (136-145)
[2019-11-25 11:06] LABS: TROPONIN-I <0.06 ng/mL (<0.06)
--- NOTE | 2019-11-25 12:07 | EKG ---
[facility] [place] [address] [place] [address] ELECTROCARDIOGRAM REPORT Name: CASE,ERICKA ROSE Room #: [facility] [id number] Admission: 11/25/19 Attend Phys: Discharge: Date of : 71 Report #: [id number] THIS REPORT FOR: cc: Stef See MD, Neal A. 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
[2019-11-25 13:09] VITALS: BP 89/56
== END 2019-11-25 13:10 | disposition home or self-care (01) ==
LOC: ER 09:57
PROVIDERS: Emergency Medicine
DX: R07.9 Chest pain, unspecified (principal); R79.1 Abnormal coagulation profile; Z79.82 Long term (current) use of aspirin; Z79.899 Other long term (current) drug therapy; Z88.8 Allergy status to other drugs, medicaments and biological substances

== ENCOUNTER 2020-02-17 10:57 | Emergency (ER) | payer OTHER ==
[~2020-02-17] VITALS: Ht 170.2 cm; Wt 56.2 kg
[2020-02-17 11:08] VITALS: BP 90/49
[2020-02-17 12:51] LABS: ABSOLUTE NEUTROPHILS 2.1 thou/uL (1.4-8.2); BASOPHILS 1.1 % (0.0-2.0); EOSINOPHILS 2.8 % (0.0-3.0); HEMOGLOBIN 10.6 gm/dL (12.0-15.0); MCH 31.6 pg (26.0-34.0); MCHC 32.3 g/dL (28.0-37.0); MCV 97.8 fL (80.0-100.0); MONOCYTES 11.8 % (1.0-8.0); PLATELET COUNT 122 thou/uL (150-400); POLYS 42.3 % (36.0-66.0); RBC 3.37 mil/uL (4.20-5.00); RDW 17.4 % (10.5-14.5); WBC 4.9 thou/uL (4.0-11.0)
[2020-02-17 13:02] LABS: APTT 25.9 Seconds (24.5-32.8); INR 1.1; PROTIME 11.6 Seconds (9.3-11.4)
[2020-02-17 13:12] LABS: CALCIUM 9.1 mg/dL (8.5-10.1); POTASSIUM 3.9 mmol/L (3.5-5.1)
[2020-02-17 13:20] LABS: ALBUMIN 3.7 g/dL (3.4-5.0); TOTAL BILIRUBIN 0.3 mg/dL (0.2-1.0); TOTAL PROTEIN 6.3 g/dL (6.4-8.2)
== END 2020-02-17 14:45 | disposition home or self-care (01) ==
LOC: ER 10:57
PROVIDERS: Emergency Medicine
DX: R42 Dizziness and giddiness (principal); R53.1 Weakness; H53.8 Other visual disturbances; M79.7 Fibromyalgia; F31.9 Bipolar disorder, unspecified; Z90.49 Acquired absence of other specified parts of digestive tract; F41.9 Anxiety disorder, unspecified; Z86.73 Personal history of transient ischemic attack (TIA), and cerebral infarction without residual deficits; Z79.899 Other long term (current) drug therapy; Z88.4 Allergy status to anesthetic agent